=== PATIENT | male | born 1955 | race Caucasian/White ===

== ENCOUNTER → 2018-02-11 | Outpatient (CLI) | payer OTHER ==
--- NOTE | 2018-02-11 17:25 | RADIOLOGY IMAGING REPORT ---
FACILITY: [facility] PATIENT NAME: Akira Velazquez : 1955 MR: [id number] V: [id number] EXAM DATE: ORDERING PHYSICIAN: CHEMO JEFFERS TECHNOLOGIST: [place] [facility] [place] Akira Velazquez : 1955 Visit/Account:[id number] Date of Sevice: 02/11/2018 Study: RIBS LEFT Indication: Pain Comparison study: None available Findings: Frontal view of the chest excluding the lung apices and a oblique view of the left ribs wer e obtained and demonstrate no evidence of acute bony abnormality. The left chest is unremarkable. T here is no evidence of pleural effusion or pneumothorax. There is no evidence of abnormality of the visualized lung perry. IMPRESSION: Unremarkable exam Study: CHEST LAT Indication: Pain Comparison study: None available Findings: Single lateral view of the chest demonstrates flattening of the diaphragms. This may indic ate the presence of underlying COPD. There is no evidence of acute bony abnormality identified. The re is no evidence of pleural effusion or pneumothorax. There is no evidence of acute infiltrate. IMPRESSION: Flattening of the diaphragms. This may indicate the presence of underlying COPD. Report Dictated By: Jude Pereira at 02/11/2018 5:17 PM Report E-Signed By: Jude Pereira at 02/11/2018 5:21 PM WSN:[id number]
--- NOTE | 2018-02-11 17:25 | RADIOLOGY IMAGING REPORT ---
FACILITY: [facility] PATIENT NAME: Akira Velazquez : 1955 MR: [id number] V: [id number] EXAM DATE: ORDERING PHYSICIAN: CHEMO JEFFERS TECHNOLOGIST: Location: [facility] Patient: Akira Velazquez : 1955 Visit/Account:[id number] Date of Sevice: 02/11/2018 Study: RIBS LEFT Indication: Pain Comparison study: None available Findings: Frontal view of the chest excluding the lung apices and a oblique view of the left ribs wer e obtained and demonstrate no evidence of acute bony abnormality. The left chest is unremarkable. T here is no evidence of pleural effusion or pneumothorax. There is no evidence of abnormality of the visualized lung perry. IMPRESSION: Unremarkable exam Study: CHEST LAT Indication: Pain Comparison study: None available Findings: Single lateral view of the chest demonstrates flattening of the diaphragms. This may indic ate the presence of underlying COPD. There is no evidence of acute bony abnormality identified. The re is no evidence of pleural effusion or pneumothorax. There is no evidence of acute infiltrate. IMPRESSION: Flattening of the diaphragms. This may indicate the presence of underlying COPD. Report Dictated By: Jude Preeira at 02/11/2018 5:17 PM Report E-Signed By: Jude Pereira at 02/11/2018 5:21 PM WSN:[id number]
== END ==
LOC: RAD 16:31
PROVIDERS: ATTEND Nurse Practitioner Primary Care
DX: R07.81 Pleurodynia (principal)
CPT/HCPCS: 71046; 71100